=== PATIENT | male | born 1975 | race Hispanic/Latino ===

== ENCOUNTER 2016-07-05 18:01 | Emergency (ER) | payer BC, MEDICAID ==
[2016-07-05 18:20] VITALS: RESP 18; TEMP 99; O2SAT 98
--- NOTE | 2016-07-05 19:31 | C.PDOC ---
History Of Present Illness 40 year old male presents to the emergency room for the evaluation of rectal pain that has developed over the last 2 days. Patient was seen at Urgent Care this morning and was given antibiotics for possible rectal abscess. Patient denies fever, chills, abdominal pain, nausea, vomiting, diarrhea, any changes in bowel movements, or any other complaints. Ambulate to Ed for evaluation, not in any apparent distress. Time Seen by Provider: 07/05/16 18:50 Chief Complaint (Nursing): Abnormal Skin Integrity History Per: Patient History/Exam Limitations: no limitations Onset/Duration Of Symptoms: Days (2) Location Of Injury: Posterior: Buttock Quality Of Symptoms: Painful Severity: Mild Recent travel outside of the [place]: No Past Medical History Reviewed: Historical Data, Nursing Documentation, Vital Signs Vital Signs: Last Vital Signs Temp 99 F 07/05/16 18:16 Pulse 85 07/05/16 19:48 Resp 18 07/05/16 19:48 BP 132/75 07/05/16 19:48 Pulse Ox 98 07/05/16 19:52 - Medical History PMH: Kidney Stones Family History: States: No Known Family Hx - Social History Hx Tobacco Use: No Hx Alcohol Use: Yes Hx Substance Use: No - Immunization History Hx Tetanus Toxoid Vaccination: No Hx Influenza Vaccination: No Hx Pneumococcal Vaccination: No Review Of Systems Except As Marked, All Systems Reviewed And Found Negative. Constitutional: Negative for: Fever, Chills Gastrointestinal: Positive for: Rectal Pain (Rectal abscess). Negative for: Nausea, Vomiting, Abdominal Pain, Diarrhea Musculoskeletal: Negative for: Back Pain Physical Exam - Physical Exam Appears: Well, Non-toxic Skin: Normal Color, Warm, Dry Head: Atraumatic, Normacephalic Eye(s): bilateral: Normal Inspection Ear(s): Bilateral: Normal Nose: Normal, No Tenderness Tongue: Normal Appearing, No Swelling Lips: Normal Appearing, No Swelling Neck: Normal ROM, No Midline Cervical Tenderness, No Paracervical Tenderness, Supple Cardiovascular: Rhythm Regular Respiratory: Normal Breath Sounds, No Rales, No Rhonchi, No Wheezing Gastrointestinal/Abdominal: Soft, No Tenderness, No Guarding, No Rebound Rectal: Rectal Tone, No Melena, Hemorrhoids (Thrombosed external hemorrhoids 2 cm in diameter, non-tender. No erythema, no flactulance.) Back: Normal Inspection, No CVA Tenderness Extremity: Normal ROM, No Pedal Edema Neurological/Psych: Oriented x3, Normal Speech, Normal Cognition ED Course And Treatment O2 Sat by Pulse Oximetry: 98 Pulse Ox Interpretation: Normal Progress Note: On re-evaluation, pt is afebrile, hemodynamicaly stable. Non- toxic. Tolerate po well in Ed. Abd: benign, (-) guarding, (-) rebound, (-) localized tenderness. Rectla exam: c/w external hemorrhoid. No evidence of rectal abscess, cellulitis. back: (-) CVA tenderness. Pt advised to continue abx as prescribed early today by PMD. Advised on course of ds. ref. to f/u with Surgery in 2-3 days for re-eval. return if any new changes. Disposition Counseled Patient/Family Regarding: Diagnosis, Need For Followup - Disposition Referrals: [facility] [Outside] David Goldberg MD [Staff Provider] - Disposition: HOME/ ROUTINE Disposition Time: 19:28 Condition: STABLE Additional Instructions: Continue medication as prescribed by PMD Follow up with Surgery in 23 days for re-evaluation. Return to ED if any worsening or news changes. Instructions: Hemorrhoids (ED) - Clinical Impression Clinical Impression: External hemorrhoid - Scribe Statement The provider has reviewed the documentation as recorded by the Scribmargaux Rodriguez All medical record entries made by the Scribe were at my direction and personally dictated by me. I have reviewed the chart and agree that the record accurately reflects my personal performance of the history, physical exam, medical decision making, and the department course for this patient. I have also personally directed, reviewed, and agree with the discharge instructions and disposition.
[2016-07-05 19:49] VITALS: BP 132/75; PULSE 85
== END 2016-07-05 19:50 | disposition home or self-care (01) ==
LOC: C.ER 18:01
DX: K64.5 Perianal venous thrombosis (principal)